=== PATIENT | male | born 1960 | race African-American/Black ===

== ENCOUNTER 2017-09-29 08:25 | Outpatient (CLI) | payer MEDICARE, MEDICAID ==
--- NOTE | 2017-09-29 11:56 | MRI ---
BRAIN MRI WITHOUT CONTRAST: 09/29/2017 HISTORY: Memory impairment. COMPARISON: None. TECHNIQUE: Multiplanar, multisequence MR imaging of the brain is obtained without contrast. FINDINGS: The diffusion-weighted imaging demonstrates no evidence for acute infarction. The axial gradient echo imaging demonstrates no evidence for intracranial hemorrhage. A few punctate foci of increased T2 and FLAIR signal are noted in the deep white matter, of doubtful clinical significance, likely on the basis of minimal small vessel disease. There is mild mucosal thickening involving the anterior ethmoid air cells bilaterally and the left maxillary sinus. A few opacified mastoid air cells are present on the left. No midline shift, mass effect, or ventricular enlargement. There is disk space narrowing with anterior and posterior osteophyte formation at C3-C4. Regional bone marrow signal intensity appears grossly unremarkable. IMPRESSION: No acute findings. No evidence for mass effect, midline shift, ventricular enlargement, acute infar ction, or intracranial hemorrhage. POS: H
== END 2017-09-29 08:26 | disposition home or self-care (01) ==
LOC: EEG 08:25
PROVIDERS: ATTEND Student in an Organized Health Care Education/Training Program
DX: R41.3 Other amnesia (principal)
CPT/HCPCS: 70551; 95816

== ENCOUNTER 2021-04-10 10:07 | Outpatient (CLI) | payer MEDICARE | END 2021-04-10 10:08 | disposition home or self-care (01) | LOC: DTY/OP 10:07 | PROVIDERS: ATTEND Internal Medicine | DX: E11.9 Type 2 diabetes mellitus without complications (principal); R63.4 Abnormal weight loss | CPT/HCPCS: 97802 ==

== ENCOUNTER 2022-09-24 16:15 | Inpatient (IN) | payer MEDICARE, MEDICAID, OTHER ==
[2022-09-24 19:20] VITALS: BMI 21.4
[2022-09-24] MEDS ORDERED: Ondansetron ODT 4 MG TAB PO PRN (20:00)
[2022-09-24] MEDS ORDERED: Acetaminophen 325 MG TAB PO PRN (20:00)
[2022-09-24] MEDS ORDERED: Acetaminophen 650 MG Suppository PR PRN (20:00)
[2022-09-24] MEDS ORDERED: Ondansetron PF 4 MG/2 ML Vial IVP PRN (20:00)
[2022-09-24] MEDS ORDERED: hydrALAZINE 20 MG/ML VIAL SLOW IVP PRN (20:25)
[2022-09-24] MEDS: Lactated Ringer's 1,000 ML IV SCH (21:54)
[2022-09-24] MEDS ORDERED: Dextrose 5% in Water 1,000 ML IV PRN (23:50)
[2022-09-24] MEDS ORDERED: Dextrose 50% Abboject 50 ML SYRINGE SLOW IVP PRN (23:50)
[2022-09-25 02:46] LABS: Creatinine, Urine 64.7 mg/dL (63-166)
[2022-09-25] MEDS: Lactated Ringer's 1,000 ML IV SCH ×2 (05:14→17:32)
[2022-09-25 05:26] LABS: #Eosinphils 0.2 thou/uL (0.0-0.7); #Lymphocytes 2.2 thou/uL (1.20-3.40); #Monocytes 0.7 thou/uL (0.11-0.59); #Neutrophils 4.8 thou/uL (1.40-6.50); %Basophils 0.5 % (0.0-1.0); %Eosinophils 2.6 % (0.0-10.0); %Lymphocytes 27.4 % (21.0-51.0); %Monocytes 8.9 % (0.0-10.0); %Neutrophils 60.6 % (42.0-75.0); Hemoglobin 13.3 g/dL (14.0-18.0); Mean Corpuscular HGB CONC 33.6 g/dL (32.0-36.0); Mean Corpuscular Hemoglobin 29.8 pg (27.0-31.0); Mean Corpuscular Volume 88.8 fl (78.0-98.0); Mean Platelet Volume 7.1 fL (7.4-10.4); Platelet Count 255 thou/uL (130-400); RBC Distribution Width 11.7 % (11.5-14.5); Red Blood Cell (RBC) Count 4.46 mill/uL (4.70-6.10)
[2022-09-25 05:33] LABS: Hemoglobin A1c 5.4 % (4.0-6.0)
[2022-09-25 06:04] LABS: ALT (SGPT) 25 U/L (8-55); AST (SGOT) 25 U/L (5-34); Albumin 3.8 g/dL (3.4-4.8); Alkaline Phosphatase 80 U/L (40-110); Anion Gap 10 mmol/L (10-20); BUN (Urea Nitrogen) 7 mg/dL (8.4-25.7); Bilirubin, Total 0.8 mg/dL (0.2-1.2); Calc. Creatinine Clearance 66 mL/min (70-130); Calcium 9.4 mg/dL (7.8-10.44); Carbon Dioxide 27 mmol/L (23-31); Cardiac Risk 3.8 (Less than 4.5); Chloride 105 mmol/L (98-107); Cholesterol 142 mg/dl (< 200 Desired); Estimated GFR 76; Globulin 2.8 g/dL (2.4-3.5); Glucose 88 mg/dL (80-115); HDL Cholesterol 37 mg/dL (>60 Neg Risk); LDL Cholesterol, Calculated 81 mg/dL; Protein, Total 6.6 g/dL (5.8-8.1); Sodium 139 mmol/L (136-145); Triglycerides 120 mg/dL (Less than 150)
[2022-09-25 06:06] LABS: Potassium 2.9 mmol/L (3.5-5.1)
[2022-09-25 07:08] LABS: Magnesium 1.6 mg/dL (1.6-2.6)
[2022-09-25] MEDS ORDERED: Potassium Chloride 20 MEQ TAB PO SCH (08:00)
[2022-09-25] MEDS ORDERED: Potassium Chloride 20 MEQ in Premix Bag 1 BAG IVPB SCH (08:00)
[2022-09-25] MEDS ORDERED: Mirtazapine 30 MG Soltab PO PRN (08:27)
[2022-09-25] MEDS ORDERED: Non-Formulary Item 1 EACH (Polyethylene Glycol 3350 [Miralax] 17 GM Powd.Pack) PO PRN (08:27)
[2022-09-25] MEDS ORDERED: Polyethylene Glycol 3350 17 GM Packet PO PRN (08:43)
[2022-09-25] MEDS ORDERED: Potassium Bicarbonate/Cit Ac 20 MEQ TAB PO SCH (08:45)
[2022-09-25] MEDS ORDERED: BUPROPION HCL 450 MG PO SCH (09:00)
[2022-09-25] MEDS ORDERED: Atorvastatin Calcium 40 MG TAB PO SCH (09:00)
[2022-09-25] MEDS ORDERED: Non-Formulary Item 1 EACH (Omeprazole [Omeprazole] 20 MG Capsule.Dr) PO SCH (09:00)
[2022-09-25] MEDS: Bupropion 150 MG XL TAB PO SCH (09:17)
[2022-09-25] MEDS: Aspirin 81 mg Enteric Coated Tablet PO SCH (09:17)
[2022-09-25] MEDS: Tamsulosin HCl 0.4 MG CAP PO SCH (09:18)
[2022-09-25] MEDS: Amlodipine 5 MG TAB PO SCH (09:18)
[2022-09-25] MEDS: Folic Acid 1 MG TAB PO SCH (09:18)
[2022-09-25] MEDS: Enoxaparin Sodium 40 MG/0.4 ML SYRINGE SC SCH (09:19)
[2022-09-25] MEDS: Glimepiride 1 MG TAB PO SCH (09:20)
[2022-09-25 15:56] LABS: Anion Gap 11 mmol/L (10-20); BUN (Urea Nitrogen) 9 mg/dL (8.4-25.7); Calc. Creatinine Clearance 65 mL/min (70-130); Calcium 9.8 mg/dL (7.8-10.44); Carbon Dioxide 28 mmol/L (23-31); Chloride 104 mmol/L (98-107); Estimated GFR 74; Glucose 105 mg/dL (80-115); Potassium 3.6 mmol/L (3.5-5.1); Sodium 139 mmol/L (136-145)
[2022-09-25] MEDS ORDERED: Non-Formulary Item 1 EACH (Benztropine Mesylate [Benztropine Mesylate] 2 MG Tablet) PO SCH (21:00)
[2022-09-25] MEDS ORDERED: Non-Formulary Item 1 EACH (Olanzapine [Olanzapine] 15 MG Tablet) PO SCH (21:00)
[2022-09-25] MEDS: Atorvastatin Calcium 40 MG TAB PO SCH (21:37)
[2022-09-25] MEDS: Benztropine 1 MG TAB PO SCH (21:37)
[2022-09-25] MEDS: OLANZapine 5 MG TAB PO SCH (21:43)
[2022-09-26 05:16] LABS: #Eosinphils 0.2 thou/uL (0.0-0.7); #Monocytes 0.8 thou/uL (0.11-0.59); #Neutrophils 5.3 thou/uL (1.40-6.50); %Basophils 0.4 % (0.0-1.0); %Eosinophils 2.1 % (0.0-10.0); %Lymphocytes 24.2 % (21.0-51.0); %Neutrophils 63.2 % (42.0-75.0); Mean Corpuscular HGB CONC 32.4 g/dL (32.0-36.0); Mean Corpuscular Hemoglobin 29.1 pg (27.0-31.0); Mean Corpuscular Volume 89.7 fl (78.0-98.0); Platelet Count 239 thou/uL (130-400); RBC Distribution Width 11.8 % (11.5-14.5); Red Blood Cell (RBC) Count 4.48 mill/uL (4.70-6.10); White Blood Cell (WBC) Count 8.4 thou/uL (4.8-10.8)
[2022-09-26 05:40] LABS: ALT (SGPT) 23 U/L (8-55); AST (SGOT) 23 U/L (5-34); Albumin 3.7 g/dL (3.4-4.8); Alkaline Phosphatase 77 U/L (40-110); Anion Gap 10 mmol/L (10-20); BUN (Urea Nitrogen) 8 mg/dL (8.4-25.7); Bilirubin, Total 0.6 mg/dL (0.2-1.2); Calc. Creatinine Clearance 72 mL/min (70-130); Calcium 9.2 mg/dL (7.8-10.44); Carbon Dioxide 28 mmol/L (23-31); Chloride 103 mmol/L (98-107); Estimated GFR 84; Globulin 2.7 g/dL (2.4-3.5); Glucose 91 mg/dL (80-115); Potassium 3.2 mmol/L (3.5-5.1); Protein, Total 6.4 g/dL (5.8-8.1); Sodium 138 mmol/L (136-145)
[2022-09-26] MEDS ORDERED: Potassium Chloride 20 MEQ TAB PO SCH (06:45)
[2022-09-26] MEDS: Enoxaparin Sodium 40 MG/0.4 ML SYRINGE SC SCH (08:09)
[2022-09-26] MEDS: Bupropion 150 MG XL TAB PO SCH (08:10)
[2022-09-26] MEDS: Glimepiride 1 MG TAB PO SCH (08:10)
[2022-09-26] MEDS: OLANZapine 5 MG TAB PO SCH ×2 (08:10→21:46)
[2022-09-26] MEDS: Tamsulosin HCl 0.4 MG CAP PO SCH (08:11)
[2022-09-26] MEDS: Aspirin 81 mg Enteric Coated Tablet PO SCH (08:11)
[2022-09-26] MEDS: Amlodipine 5 MG TAB PO SCH (08:11)
[2022-09-26] MEDS: Folic Acid 1 MG TAB PO SCH (08:11)
[2022-09-26] MEDS: Benztropine 1 MG TAB PO SCH (21:46)
[2022-09-26] MEDS: Atorvastatin Calcium 40 MG TAB PO SCH (21:46)
[2022-09-27 05:46] LABS: ALT (SGPT) 22 U/L (8-55); AST (SGOT) 22 U/L (5-34); Alkaline Phosphatase 81 U/L (40-110); Anion Gap 13 mmol/L (10-20); BUN (Urea Nitrogen) 10 mg/dL (8.4-25.7); Bilirubin, Total 0.6 mg/dL (0.2-1.2); Calc. Creatinine Clearance 62 mL/min (70-130); Calcium 10.3 mg/dL (7.8-10.44); Carbon Dioxide 29 mmol/L (23-31); Chloride 102 mmol/L (98-107); Estimated GFR 70; Glucose 92 mg/dL (80-115); Potassium 3.8 mmol/L (3.5-5.1); Sodium 140 mmol/L (136-145)
[2022-09-27 05:48] LABS: #Eosinphils 0.2 thou/uL (0.0-0.7); #Lymphocytes 1.8 thou/uL (1.20-3.40); #Monocytes 0.6 thou/uL (0.11-0.59); #Neutrophils 5.2 thou/uL (1.40-6.50); %Basophils 0.6 % (0.0-1.0); %Eosinophils 2.6 % (0.0-10.0); %Lymphocytes 23.2 % (21.0-51.0); %Monocytes 7.4 % (0.0-10.0); %Neutrophils 66.2 % (42.0-75.0); Hemoglobin 14.8 g/dL (14.0-18.0); Mean Corpuscular HGB CONC 34.2 g/dL (32.0-36.0); Mean Corpuscular Volume 90.6 fl (78.0-98.0); Mean Platelet Volume 7.1 fL (7.4-10.4); Platelet Count 262 thou/uL (130-400); RBC Distribution Width 11.9 % (11.5-14.5); Red Blood Cell (RBC) Count 4.77 mill/uL (4.70-6.10); White Blood Cell (WBC) Count 7.9 thou/uL (4.8-10.8)
[2022-09-27] MEDS: Lisinopril 10 MG TAB PO SCH (08:27)
[2022-09-27] MEDS: Bupropion 150 MG XL TAB PO SCH (08:28)
[2022-09-27] MEDS: Aspirin 81 mg Enteric Coated Tablet PO SCH (08:28)
[2022-09-27] MEDS: Enoxaparin Sodium 40 MG/0.4 ML SYRINGE SC SCH (08:28)
[2022-09-27] MEDS: Glimepiride 1 MG TAB PO SCH (08:29)
[2022-09-27] MEDS: Folic Acid 1 MG TAB PO SCH (08:29)
[2022-09-27] MEDS: Amlodipine 5 MG TAB PO SCH (08:29)
[2022-09-27] MEDS: Tamsulosin HCl 0.4 MG CAP PO SCH (08:29)
[2022-09-27] MEDS: OLANZapine 5 MG TAB PO SCH ×2 (08:30→20:44)
[2022-09-27] MEDS: Benztropine 1 MG TAB PO SCH (20:44)
[2022-09-27] MEDS: Atorvastatin Calcium 40 MG TAB PO SCH (20:44)
[2022-09-28 05:34] LABS: #Basophils 0.1 thou/uL (0.0-0.2); #Eosinphils 0.2 thou/uL (0.0-0.7); #Lymphocytes 1.9 thou/uL (1.20-3.40); #Monocytes 0.8 thou/uL (0.11-0.59); #Neutrophils 6.3 thou/uL (1.40-6.50); %Basophils 0.6 % (0.0-1.0); %Eosinophils 2.2 % (0.0-10.0); %Lymphocytes 20.6 % (21.0-51.0); %Monocytes 8.7 % (0.0-10.0); %Neutrophils 68.1 % (42.0-75.0); Hemoglobin 14.4 g/dL (14.0-18.0); Mean Platelet Volume 6.9 fL (7.4-10.4); Platelet Count 275 thou/uL (130-400); RBC Distribution Width 11.8 % (11.5-14.5); Red Blood Cell (RBC) Count 4.79 mill/uL (4.70-6.10); White Blood Cell (WBC) Count 9.2 thou/uL (4.8-10.8)
[2022-09-28 05:49] LABS: ALT (SGPT) 21 U/L (8-55); AST (SGOT) 22 U/L (5-34); Alkaline Phosphatase 79 U/L (40-110); Anion Gap 14 mmol/L (10-20); BUN (Urea Nitrogen) 16 mg/dL (8.4-25.7); Bilirubin, Total 0.5 mg/dL (0.2-1.2); Calc. Creatinine Clearance 57 mL/min (70-130); Carbon Dioxide 26 mmol/L (23-31); Chloride 103 mmol/L (98-107); Estimated GFR 64; Glucose 87 mg/dL (80-115); Potassium 3.8 mmol/L (3.5-5.1); Sodium 139 mmol/L (136-145)
[2022-09-28] MEDS ORDERED: Polyethylene Glycol 3350 17 GM Packet PO SCH (09:00)
[2022-09-28] MEDS: Amlodipine 5 MG TAB PO SCH (10:17)
[2022-09-28] MEDS: Bupropion 150 MG XL TAB PO SCH (10:17)
[2022-09-28] MEDS: Enoxaparin Sodium 40 MG/0.4 ML SYRINGE SC SCH (10:17)
[2022-09-28] MEDS: Lisinopril 10 MG TAB PO SCH (10:18)
[2022-09-28] MEDS: OLANZapine 5 MG TAB PO SCH (10:18)
[2022-09-28] MEDS: Folic Acid 1 MG TAB PO SCH (10:18)
[2022-09-28] MEDS: Tamsulosin HCl 0.4 MG CAP PO SCH (10:18)
[2022-09-28] MEDS: Aspirin 81 mg Enteric Coated Tablet PO SCH (10:18)
[2022-09-28] MEDS: Glimepiride 1 MG TAB PO SCH (10:18)
[2022-09-28 15:43] VITALS: BP 132/87; TEMP 97.3
== END 2022-09-28 18:29 | disposition home or self-care (01) | DRG 66 ==
LOC: NEURO 18:53
PROVIDERS: ADMIT Family Medicine; ATTEND Family Medicine
DX: I63.89 Other cerebral infarction (principal); I12.9 Hypertensive chronic kidney disease with stage 1 through stage 4 chronic kidney disease, or unspecified chronic kidney disease; E11.22 Type 2 diabetes mellitus with diabetic chronic kidney disease; E78.5 Hyperlipidemia, unspecified; R29.810 Facial weakness; G83.24 Monoplegia of upper limb affecting left nondominant side; E87.6 Hypokalemia; N18.31 Chronic kidney disease, stage 3a; F32.A Depression, unspecified; F41.9 Anxiety disorder, unspecified; F20.9 Schizophrenia, unspecified; F03.A0 Unspecified dementia, mild, without behavioral disturbance, psychotic disturbance, mood disturbance, and anxiety; R47.02 Dysphasia; R47.01 Aphasia; K59.00 Constipation, unspecified; R29.704 NIHSS score 4; Z79.899 Other long term (current) drug therapy; Z79.84 Long term (current) use of oral hypoglycemic drugs; Z90.49 Acquired absence of other specified parts of digestive tract; Z82.3 Family history of stroke; Z82.49 Family history of ischemic heart disease and other diseases of the circulatory system; Z83.3 Family history of diabetes mellitus; Z87.891 Personal history of nicotine dependence
CPT/HCPCS: 36415; 36416; 70551; 80053; 80061; 82570; 83036; 83735; 84300; 84443; 85025; 93306; 93880; J1650; J3480; J7120; U0003; U0005

== ENCOUNTER 2025-08-31 20:19 | Observation (INO) | payer OTHER, MEDICAID ==
[2025-08-31 21:54] VITALS: BMI 21.2
[2025-08-31] MEDS ORDERED: Glucagon 1 MG/ML KIT IM PRN (22:17)
[2025-08-31] MEDS ORDERED: Dextrose 50% Abboject 50 ML SYRINGE SLOW IVP PRN (22:17)
[2025-09-01 04:25] LABS: #Basophils 0.03 10x3/uL (0.0-0.2); #Eosinophils 0.27 10x3/uL (0.0-0.7); #Monocytes 0.71 10x3/uL (0.11-0.59); #Neutrophils 3.79 10x3/uL (1.40-6.50); %Basophils 0.4 % (0.0-1.0); %Eosinophils 3.7 % (0.0-10.0); %Lymphocytes 33.2 % (21.0-51.0); %Monocytes 9.8 % (0.0-10.0); %Neutrophils 52.5 % (42.0-75.0); Hematocrit 28.5 % (42.0-52.0); Hemoglobin 9.4 g/dL (14.0-18.0); Mean Corpuscular Hemoglobin 29.3 pg (27.0-31.0); Mean Corpuscular Volume 88.8 fL (78.0-98.0); Platelet Count 326 10x3/uL (130-400); Red Blood Cell (RBC) Count 3.21 mill/uL (4.70-6.10); White Blood Cell (WBC) Count 7.23 10x3/uL (4.8-10.8)
[2025-09-01 05:03] LABS: ALT (SGPT) 67 U/L (Less than 45); AST (SGOT) 61 U/L (11-34); Albumin 3.3 g/dL (3.1-4.5); Alkaline Phosphatase 36 U/L (40-110); Anion Gap 12 mmol/L (10-20); BUN (Urea Nitrogen) 37 mg/dL (8.4-25.7); Bilirubin, Total 0.3 mg/dL (0.3-1.2); Calc. Creatinine Clearance 33 mL/min (70-130); Calcium 8.8 mg/dL (7.8-10.44); Carbon Dioxide 19 mmol/L (23-31); Chloride 108 mmol/L (98-107); Globulin 2.5 g/dL (2.4-3.5); Glucose 102 mg/dL (80-115); Potassium 4.1 mmol/L (3.5-5.1); Sodium 135 mmol/L (136-145)
[2025-09-01] MEDS: Benztropine 1 MG TAB PO SCH (08:44)
[2025-09-01] MEDS: Aspirin 81 mg Enteric Coated Tablet PO SCH (08:44)
[2025-09-01] MEDS: BuPROPion XL 150 MG ER.TAB PO SCH (08:44)
[2025-09-01] MEDS: Cholecalciferol 1,000 UNITS (25 MCG) TAB PO SCH (08:44)
[2025-09-01] MEDS: OLANZapine 5 MG TAB PO SCH (08:45)
[2025-09-01] MEDS: Folic Acid 1 MG TAB PO SCH (08:45)
[2025-09-01] MEDS: Pantoprazole 40 MG DR.TAB PO SCH (08:45)
[2025-09-01] MEDS ORDERED: ALFUZOSIN HCL 10 MG PO SCH (09:00)
[2025-09-01] MEDS ORDERED: FLU (Fluad Triv) 25-26 (65UP)PF 45 MCG/0.5 ML Syringe IM ONE (09:00)
[2025-09-01 12:03] VITALS: BP 123/75; TEMP 98.5
[2025-09-01] MEDS ORDERED: OLANZapine 5 MG TAB PO SCH (21:00)
== END 2025-09-01 14:25 | disposition home or self-care (01) ==
LOC: T4-A 21:33
PROVIDERS: ADMIT Student in an Organized Health Care Education/Training Program; ATTEND Student in an Organized Health Care Education/Training Program
DX: N17.9 Acute kidney failure, unspecified (principal); I12.9 Hypertensive chronic kidney disease with stage 1 through stage 4 chronic kidney disease, or unspecified chronic kidney disease; E11.22 Type 2 diabetes mellitus with diabetic chronic kidney disease; N18.9 Chronic kidney disease, unspecified; E86.0 Dehydration; E87.1 Hypo-osmolality and hyponatremia; R74.01 Elevation of levels of liver transaminase levels; D64.9 Anemia, unspecified; N28.1 Cyst of kidney, acquired; F41.9 Anxiety disorder, unspecified; F32.A Depression, unspecified; F20.9 Schizophrenia, unspecified; F03.90 Unspecified dementia, unspecified severity, without behavioral disturbance, psychotic disturbance, mood disturbance, and anxiety; N40.0 Benign prostatic hyperplasia without lower urinary tract symptoms; Z79.82 Long term (current) use of aspirin; Z79.899 Other long term (current) drug therapy
CPT/HCPCS: 80053; 82962 ×2; 85025; J7030; 36415; 36416; G0378